=== PATIENT | male | born 1950 | race Caucasian/White ===

== ENCOUNTER → 2016-10-24 | Outpatient (CLI) | payer BC, OTHER ==
--- NOTE | 2016-10-24 13:35 | PCVCIMAG ---
APPROVED REPORT Exam: Stress Echocardiogram Indication: Hypertension, Hyperlipidemia Patient Location: Echo lab Stress Nurse: Sarah Mendes RN Status: routine Ht: 5 ft 10 in Rhythm: BIFASCICULAR BLOCK Medical History Medical History: HTN, Hyperlipidemia Previous Cardiac Procedures: NONE Pretest Chest Pain Characteristics: No chest pain Exercise History: Sedentary Procedure The patient underwent an Exercise Stress Test using the Henri Protocol. Blood pressure, heart rate, and EKG were monitored. An Echocardiogram was performed by architectural technician in four stages in quad fashion. At peak stress, four selected images were obtained and placed side by side with resting images for comparison. Stress Test Details Stress Test: Exercise stress testing was performed using a Henri protocol. HR Resting HR: 85 bpmMax Heart Rate (APMHR): 156 bpm Max HR Achieved: 165 bpmTarget HR (85% APMHR): 132 bpm % of APMHR: 105 Recovery HR: 106 bpm HR response to stress: Normal HR response to stress BP Resting BP: 138/80 mmHg Max BP: 186/90 mmHg Recovery BP: 124/84 mmHg ECG Resting ECG: Sinus Rhythm, right ventricular conduction delay Stress ECG: , Sinus Rhythm Maximum ST Deviation: 0 mm Arrhythmia: RARE PVCS Recovery ECG: Sinus Rhythm Recovery ST Change: Normal Recovery ST Deviation: 0 mm Recovery Arrhythmia: None Clinical Reason for Termination: SOB,LEG FATIGUE Stress Symptoms: NONE Exercise duration: 6 min 09 sec Highest Stage Achieved: Stage 2: 2.5 mph at 12% grade. Exercise capacity: 7.4 METs Overall Exercise Capacity for Age: Poor Angina Score: None Stress ECG Conclusion Clinical: Non-ischemic ECG: Non-ischemic Corrigan Treadmill Score is 6.0 which is Low risk. Pre-Stress Echo The resting Echocardiogram showed normal left ventricular contractility with an estimated Ejection Fraction of about 55-60%. Normal wall motion in all segments on baseline images. Post-Stress Echo The stress Echocardiogram showed normal left ventricular contractility with an estimated Ejection Fraction of about 65-70%. Normal augmentation of wall motion in all segments on post stress images. Clinical No clinical or ECG evidence for ischemia. Conclusion Clinical Response: Non-ischemic Exercise Capacity: Below Average Stress ECG Response: Non-ischemic Stress Echo Images: Non-ischemic No clinical, EKG or echocardiographic evidence for ischemia. No echocardiographic evidence for exercise induced ischemia. Normal stress echocardiogram with maximal exercise stress. Dilated ascending aorta at 4.5 cm, Bicuspid aortic valve. Sclerotic aortic valve with mild stenosis; peak gradient 16mmHg, mean gradient 7.5mmHg Valve area 1.5cm2 No prior study available for comparison. Critical Notification Recommend CTA of aorta. Periodic imaging of aortic valve and aorta. Screening of all primary relatives <Conclusion> No clinical, EKG or echocardiographic evidence for ischemia. No echocardiographic evidence for exercise induced ischemia. Normal stress echocardiogram with maximal exercise stress. Dilated ascending aorta at 4.5 cm, Bicuspid aortic valve. Sclerotic aortic valve with mild stenosis; peak gradient 16mmHg, mean gradient 7.5mmHg Valve area 1.5cm2
== END | disposition home or self-care (01) ==
LOC: PCVCIMAG 10:50
PROVIDERS: ATTEND Internal Medicine
DX: I35.0 Nonrheumatic aortic (valve) stenosis (principal); I45.2 Bifascicular block; R94.31 Abnormal electrocardiogram [ECG] [EKG]; I10 Essential (primary) hypertension; E78.5 Hyperlipidemia, unspecified; I49.3 Ventricular premature depolarization
CPT/HCPCS: 93325; 93351